=== PATIENT | male | born 1990 | race Caucasian/White ===

== ENCOUNTER 2017-10-17 14:04 | Emergency (ER) | payer OTHER ==
[~2017-10-17] VITALS: Ht 142.2 cm; Wt 62.0 kg
[2017-10-17] MEDS ORDERED: PLEASE ENTER HEIGHT AND WEIGHT MC SCH (14:30)
[2017-10-17] MEDS ORDERED: SODIUM CHLORIDE FLUSH 10ML SYR IVF ONE (14:30)
[2017-10-17 14:45] LABS: BASOPHILS # (AUTO) 0.02 x10^3/uL (0-0.1); BASOPHILS % (AUTO) 0 % (0-1); EOSINOPHILS # (AUTO) 0.03 x10^3/uL (0-0.4); EOSINOPHILS % (AUTO) 0 % (1-7); LYMPHOCYTES % (AUTO) 19 % (22-44); MD NO; MEAN CORPUSCULAR HEMOGLOBIN 30.6 pg (27.5-34.5); MEAN CORPUSCULAR VOLUME 90.2 fL (81-97); MEAN PLATELET VOLUME 8.8 fL (7.4-10.4); MONOCYTES # (AUTO) 0.75 x10^3/uL (0.2-0.8); MONOCYTES % (AUTO) 7 % (2-9); NEUTROPHILS # (AUTO) 8.41 x10^3/uL (1.8-6.8); NEUTROPHILS % (AUTO) 74 % (42-75); PLATELET COUNT 248 x10^3/uL (130-400); RED BLOOD COUNT 5.71 x10^6/uL (4.38-5.82)
[2017-10-17 14:51] LABS: ALANINE AMINOTRANSFERASE 28 U/L (12-78); ALBUMIN 4.2 g/dL (3.4-5.0); ANION GAP 9 mmol/L (5-15); CALCIUM 9.1 mg/dL (8.5-10.1); CHLORIDE 103 mmol/L (98-107)
[2017-10-17 14:53] LABS: ALKALINE PHOSPHATASE 117 U/L (45-117); BILIRUBIN,TOTAL 0.8 mg/dL (0.2-1.0); TOTAL PROTEIN 8.8 g/dL (6.4-8.2)
[2017-10-17] MEDS ORDERED: MIRA25TA PO (14:58)
[2017-10-17 15:43] VITALS: BP 144/98
[2017-10-17 15:44] LABS: MICROSCOPIC AUTO
[2017-10-17 15:46] LABS: CULTURE INDICATED? NO
== END 2017-10-17 16:42 | disposition home or self-care (01) ==
LOC: ED 16:41
DX: F41.1 Generalized anxiety disorder (principal); R10.31 Right lower quadrant pain
CPT/HCPCS: 36415; 80053; 81001; 83690; 83735; 85025; 93005; 99285

== ENCOUNTER 2017-10-17 19:11 | Emergency (ER) | payer OTHER ==
[~2017-10-17] VITALS: Ht 142.2 cm; Wt 63.5 kg
[~2017-10-17 19:11] MED LIST: MIRA25TA PO
[2017-10-17] MEDS ORDERED: ACETAMINOPHEN 325 MG TABLET ONE (21:43)
[2017-10-17 21:45] VITALS: BP 126/79
[2017-10-17] MEDS ORDERED: ACETAMINOPHEN 325 MG TABLET PO ONE (22:00)
== END 2017-10-17 22:02 | disposition home or self-care (01) ==
LOC: ED 21:45
DX: R10.11 Right upper quadrant pain (principal)
CPT/HCPCS: 76700; 99284